=== PATIENT | female | born 1980 | race African-American/Black ===

== ENCOUNTER 2018-10-26 08:56 | Emergency (ER) | payer OTHER ==
[~2018-10-26] VITALS: Ht 162.6 cm; Wt 75.8 kg
[2018-10-26 09:18] LABS: URINE BILIRUBIN NEGATIVE (Negative); URINE BLOOD 2+ (Negative); URINE CLARITY SL HAZY; URINE COLOR YELLOW; URINE GLUCOSE-RANDOM* NEGATIVE (Negative); URINE KETONES NEGATIVE (Negative); URINE LEUKOCYTES-REFLEX NEGATIVE (Negative); URINE NITRITE-REFLEX NEGATIVE (Negative); URINE PROTEIN (DIPSTICK) NEGATIVE (Negative); URINE UROBILINOGEN 0.2 E.U./dl (0.2-1.0)
[2018-10-26 09:30] LABS: SQUAMOUS 0-3 Few /LPF (0-3); URINE RBC 3-10 Few /HPF (0-2); URINE WBC-REFLEX 0-5 Rare /HPF (0-5)
[2018-10-26 09:31] LABS: AMORPHOUS PHOSPHATES Moderate /LPF (None Seen); CASTS None Seen /LPF (None Seen)
[2018-10-26 10:26] LABS: ABSOLUTE NEUTROPHILS 2.8 thou/uL (1.4-8.2); BASOPHILS 0.7 % (0.0-2.0); EOSINOPHILS 1.1 % (0.0-3.0); LYMPHOCYTES 48.4 % (24.0-44.0); MCH 31.1 pg (26.0-34.0); MCHC 34.3 g/dL (28.0-37.0); MCV 90.6 fL (80.0-100.0); MONOCYTES 5.9 % (1.0-8.0); PLATELET COUNT 374 thou/uL (150-400); POLYS 43.9 % (36.0-66.0); RBC 4.19 mil/uL (4.20-5.00); RDW 13.2 % (10.5-14.5); WBC 6.3 thou/uL (4.0-11.0)
[2018-10-26 10:28] LABS: CALCIUM 9.1 mg/dL (8.5-10.1); CREATININE 0.7 mg/dL (0.6-1.0); POTASSIUM 3.8 mmol/L (3.5-5.1)
[2018-10-26 10:34] LABS: ALBUMIN 3.6 g/dL (3.4-5.0); TOTAL BILIRUBIN 0.4 mg/dL (<0.1-1.0); TOTAL PROTEIN 7.1 g/dL (6.4-8.2)
[2018-10-26] MEDS ORDERED: NAPROSYN500 MG PO (11:35)
[2018-10-26] MEDS ORDERED: NORCO 5-325 TA1 EACH PO (11:35)
[2018-10-26 12:02] VITALS: BP 141/80
== END 2018-10-26 12:05 | disposition short-term general hospital (02) ==
LOC: ER 08:56
PROVIDERS: Emergency Medicine
DX: D25.9 Leiomyoma of uterus, unspecified (principal); R33.9 Retention of urine, unspecified; F17.210 Nicotine dependence, cigarettes, uncomplicated

== ENCOUNTER 2019-01-05 15:25 | Emergency (ER) | payer OTHER ==
[~2019-01-05] VITALS: Ht 162.6 cm; Wt 75.8 kg
[~2019-01-05 15:25] MED LIST: NAPROSYN500 MG PO; NORCO 5-325 TA1 EACH PO
[2019-01-05] MEDS ORDERED: OSELB75 PO (15:49)
[2019-01-05] MEDS ORDERED: CORTIZONE-10 PL28 GM TOP (15:49)
[2019-01-05] MEDS ORDERED: PROMETH-CODEIN 65 ML PO (15:58)
[2019-01-05 16:06] VITALS: BP 133/93
== END 2019-01-05 16:06 | disposition home or self-care (01) ==
LOC: ER 15:25
DX: L25.9 Unspecified contact dermatitis, unspecified cause (principal); Z20.828 Contact with and (suspected) exposure to other viral communicable diseases; R05 Cough; F17.210 Nicotine dependence, cigarettes, uncomplicated

== ENCOUNTER 2021-11-09 11:16 | Emergency (ER) | payer BC ==
[~2021-11-09] VITALS: Ht 162.6 cm; Wt 61.2 kg
[~2021-11-09 11:16] MED LIST changes: +CORTIZONE-10 PL28 GM TOP; +OSELB75 PO; +PROMETH-CODEIN 65 ML PO
[2021-11-09 12:18] VITALS: BP 130/88
== END 2021-11-09 12:19 | disposition home or self-care (01) ==
LOC: ER 11:16
DX: U07.1 COVID-19 (principal); J02.9 Acute pharyngitis, unspecified